=== PATIENT | male | born 1970 | race Caucasian/White ===

== ENCOUNTER 2023-07-02 05:06 | Day surgery (SDC) | payer BC ==
[2023-07-02] MEDS ORDERED: Dextrose 5%-0.45% NaCl 1,000 ML IV SCH (05:30)
[2023-07-02] MEDS ORDERED: fentaNYL 100 MCG/2 ML SDV ONE (06:08)
[2023-07-02] MEDS ORDERED: Midazolam 1 MG/ML 2 ML SDV ONE (06:08)
[2023-07-02] MEDS ORDERED: fentaNYL 100 MCG/2 ML SDV IV ONE ×2 (06:30→06:31)
[2023-07-02] MEDS ORDERED: Midazolam 1 MG/ML 2 ML SDV IV ONE ×2 (06:31→06:32)
== END 2023-07-02 08:15 | disposition home or self-care (01) ==
LOC: DL.ENDO 05:06
PROVIDERS: ATTEND Internal Medicine Gastroenterology
DX: K44.9 Diaphragmatic hernia without obstruction or gangrene (principal); K21.9 Gastro-esophageal reflux disease without esophagitis; K29.50 Unspecified chronic gastritis without bleeding; E78.5 Hyperlipidemia, unspecified; K22.70 Barrett's esophagus without dysplasia; E66.09 Other obesity due to excess calories; F41.1 Generalized anxiety disorder; Z68.33 Body mass index [BMI] 33.0-33.9, adult; Z88.2 Allergy status to sulfonamides
CPT/HCPCS: 87077; J2250; J3010; J7042

== ENCOUNTER 2023-07-03 06:24 | Day surgery (SDC) | payer BC ==
[2023-07-03] MEDS ORDERED: fentaNYL 100 MCG/2 ML SDV IV ONE ×3 (06:25→07:18)
[2023-07-03] MEDS ORDERED: Midazolam 1 MG/ML 2 ML SDV IV ONE ×6 (06:25→07:25)
[2023-07-03] MEDS ORDERED: Dextrose 5%-0.45% NaCl 1,000 ML IV SCH (06:30)
[2023-07-03] MEDS ORDERED: Midazolam 1 MG/ML 2 ML SDV ONE (07:14)
[2023-07-03] MEDS ORDERED: fentaNYL 100 MCG/2 ML SDV ONE (07:14)
== END 2023-07-03 08:50 | disposition home or self-care (01) ==
LOC: DL.ENDO 06:24
PROVIDERS: ATTEND Internal Medicine Gastroenterology
DX: Z12.11 Encounter for screening for malignant neoplasm of colon (principal); K64.4 Residual hemorrhoidal skin tags; D12.3 Benign neoplasm of transverse colon; K21.00 Gastro-esophageal reflux disease with esophagitis, without bleeding; F41.1 Generalized anxiety disorder; E78.5 Hyperlipidemia, unspecified; E66.09 Other obesity due to excess calories; Z68.33 Body mass index [BMI] 33.0-33.9, adult; Z88.2 Allergy status to sulfonamides
CPT/HCPCS: J2250; J3010; J7042